=== PATIENT | male | born 1995 | race Caucasian/White ===

== ENCOUNTER 2020-06-08 06:34 | Emergency (ER) | payer SELFPAY ==
[2020-06-08] MEDS ORDERED: Ketorolac Tromethamine 30 MG/ML VIAL ONE (06:46)
[2020-06-08 07:07] LABS: Bilirubin Negative (Negative); Blood, Urine Negative (Negative); Clarity Clear (Clear); Glucose, Urine (Dipstick) Normal (Negative); Ketone, Urine Negative (Negative); Leukocyte Negative Leu/uL (Negative); Nitrite Negative (Negative); Protein, Urine (Dipstick) Negative (Neg-Trace); Urobilinogen Normal mg/dL (Less than 2)
--- NOTE | 2020-06-08 07:37 | ULT ---
Scrotal sonogram with duplex evaluation HISTORY: Testicular pain. FINDINGS: Right testicle measures up to 3.6 cm length and the left 3.7 cm. Each has a normal appearan ce with good color and spectral Doppler flow. IMPRESSION : Normal exam.
== END 2020-06-08 08:16 | disposition home or self-care (01) ==
LOC: ERS 06:34
DX: N50.811 Right testicular pain (principal); F17.210 Nicotine dependence, cigarettes, uncomplicated
CPT/HCPCS: 76870; 81003; 87491; 87591; 93976; 96374; J1885

== ENCOUNTER 2021-12-07 11:58 | Emergency (ER) | payer SELFPAY ==
[2021-12-07] MEDS ORDERED: Ondansetron ODT 4 MG TAB ONE (13:19)
== END 2021-12-07 14:36 | disposition home or self-care (01) ==
LOC: ERS 11:58
DX: R11.2 Nausea with vomiting, unspecified (principal); R51.9 Headache, unspecified
CPT/HCPCS: 99283; Q0162